=== PATIENT | male | born 1970 | race Caucasian/White ===

== ENCOUNTER 2019-02-27 21:56 | Inpatient (IN) | payer SELFPAY ==
[~2019-02-27] VITALS: Ht 165.1 cm; Wt 83.5 kg
[2019-02-27] MEDS ORDERED: ASPIRIN 81MG TABLET PO ONE (23:00)
[2019-02-27] MEDS ORDERED: NITROGLYCERIN OINT 1GM/INCH UDPKT TD ONE (23:00)
[2019-02-27 23:19] LABS: BASOPHILS % 0.8 % (0.0-2.0); EOSINOPHILS % 5.2 % (0.0-5.0); HEMATOCRIT. 48.3 % (42.0-52.0); HEMOGLOBIN. 16.4 g/dL (14.0-18.0); MEAN CORPUSCULAR HEMOGLOBIN 30.4 pg (28.0-32.0); MEAN CORPUSCULAR VOLUME 89.7 fL (80.0-94.0); MEAN PLATELET VOLUME 7.9 fl (7.4-10.4); MONOCYTES % 8.7 % (2.0-8.0); NEUTROPHILS % 69.3 % (40.0-76.0); PLATELET 234 x1000/uL (130-400); RED BLOOD CELL COUNT 5.39 mill/uL (4.7-6.1); RED CELL DISTRIBUTION WIDTH 14.1 % (11.6-14.6)
[2019-02-27 23:24] LABS: CHLORIDE 108 mEq/L (98-107)
[2019-02-28] MEDS ORDERED: ONDANSETRON HCL 4MG/2ML INJ IV ONE
[2019-02-28] MEDS ORDERED: MORPHINE SULFATE 4 MG/ML CPJ (NOT FOR IM USE) IV ONE
[2019-02-28 05:21] VITALS: BP 150/100
[2019-02-28] MEDS: MORPHINE SULFATE 2 MG/ML CPJ (NOT FOR IM USE) IV PRN ×3 (06:34→20:55)
[2019-02-28 08:00] VITALS: BP 133/88
[2019-02-28] MEDS ORDERED: INFLUENZA VIRUS VACCINE(AFLURIA) 0.5ML SYR IM ONE (08:00)
[2019-02-28] MEDS: ENOXAPARIN 40MG/0.4ML SYR SUBCUT SCH (08:23)
[2019-02-28] MEDS: ASPIRIN 325MG EC TABLET PO SCH (08:23)
[2019-02-28] MEDS: NITROGLYCERIN OINT 1GM/INCH UDPKT TD SCH ×3 (08:24→21:01)
[2019-02-28] MEDS ORDERED: METOPROLOL TARTRATE 50MG TABLET PO SCH (09:00)
[2019-02-28 12:00] VITALS: BP 132/82
[2019-02-28 16:00] VITALS: BP 108/73
[2019-02-28] MEDS ORDERED: LIP40 MT (16:28)
[2019-02-28] MEDS ORDERED: LOSA50TA41 MT (16:28)
[2019-02-28] MEDS ORDERED: CARV12.545 MT (16:28)
[2019-02-28] MEDS ORDERED: ASPI-1158 MT (16:28)
[2019-02-28 20:00] VITALS: BP 122/79
[2019-02-28] MEDS: CARVEDILOL 6.25 MG TABLET PO SCH (20:55)
[2019-02-28] MEDS ORDERED: ATORVASTATIN CALCIUM 40MG TABLET PO SCH (21:00)
[2019-03-01] VITALS: BP 103/66
[2019-03-01 04:00] VITALS: BP 125/85
[2019-03-01] MEDS: MORPHINE SULFATE 2 MG/ML CPJ (NOT FOR IM USE) IV PRN (04:16)
[2019-03-01] MEDS: NITROGLYCERIN OINT 1GM/INCH UDPKT TD SCH (05:22)
[2019-03-01 06:55] LABS: BASOPHILS % 0.7 % (0.0-2.0); EOSINOPHILS % 7.2 % (0.0-5.0); HEMATOCRIT. 49.4 % (42.0-52.0); HEMOGLOBIN. 16.6 g/dL (14.0-18.0); LYMPHOCYTES % 18.2 % (20.0-50.0); MEAN CORPUSCULAR HEMOGLOBIN 30.7 pg (28.0-32.0); MEAN CORPUSCULAR VOLUME 91.3 fL (80.0-94.0); MEAN PLATELET VOLUME 8.6 fl (7.4-10.4); MONOCYTES % 7.2 % (2.0-8.0); NEUTROPHILS % 66.7 % (40.0-76.0); PLATELET 250 x1000/uL (130-400); RED BLOOD CELL COUNT 5.42 mill/uL (4.7-6.1); RED CELL DISTRIBUTION WIDTH 13.8 % (11.6-14.6)
[2019-03-01 07:23] LABS: CHLORIDE 104 mEq/L (98-107)
[2019-03-01 08:00] VITALS: BP 115/73
[2019-03-01] MEDS: ASPIRIN 325MG EC TABLET PO SCH (08:16)
[2019-03-01] MEDS: ENOXAPARIN 40MG/0.4ML SYR SUBCUT SCH (08:17)
[2019-03-01] MEDS: CARVEDILOL 6.25 MG TABLET PO SCH (08:17)
[2019-03-01 08:53] VITALS: BP 115/73
[2019-03-01] MEDS ORDERED: CARVEDILOL 3.125 MG TABLET PO SCH (09:00)
[2019-03-01] MEDS ORDERED: LOSARTAN POTASSIUM 50 MG TABLET PO SCH (09:00)
[2019-03-01] MEDS ORDERED: FUROSEMIDE 40MG TABLET PO SCH (09:00)
== END 2019-03-01 09:25 | disposition home or self-care (01) | DRG 48 ==
LOC: ER 21:56 → EDBEDREQ 02-28 03:31 → EDBEDREQDT 02-28 03:31 → EDBEDREQTM 02-28 03:31 → ENRESERV 02-28 03:41 → 6WST 02-28 04:58
PROVIDERS: ADMIT Internal Medicine; ATTEND Internal Medicine
DX: G90.8 Other disorders of autonomic nervous system (principal); E87.8 Other disorders of electrolyte and fluid balance, not elsewhere classified; I11.0 Hypertensive heart disease with heart failure; I50.22 Chronic systolic (congestive) heart failure; I25.10 Atherosclerotic heart disease of native coronary artery without angina pectoris; R07.9 Chest pain, unspecified; E78.5 Hyperlipidemia, unspecified; I25.5 Ischemic cardiomyopathy; Z87.891 Personal history of nicotine dependence; I25.2 Old myocardial infarction; Z95.5 Presence of coronary angioplasty implant and graft; Z90.49 Acquired absence of other specified parts of digestive tract
CPT/HCPCS: 36415; 71045; 80048; 80061; 83880; 84443; 84484; 90686; 93005; 93306; 96374; 96375; 99285; J1650; J2270; J2405

== ENCOUNTER 2019-05-03 12:31 | Emergency (ER) | payer SELFPAY ==
[~2019-05-03] VITALS: Ht 175.3 cm; Wt 86.0 kg
[~2019-05-03 12:31] MED LIST: ASPI-1158 MT; CARV12.545 MT; LIP40 MT; LOSA50TA41 MT
[2019-05-03 12:58] VITALS: BP 159/101
[2019-05-03] MEDS ORDERED: NITROGLYCERIN 0.4MG TABLET SL SL PRN (14:45)
[2019-05-03] MEDS ORDERED: ASPIRIN 81MG TABLET PO ONE (14:45)
[2019-05-03 14:56] LABS: BASOPHILS % 0.9 % (0.0-2.0); EOSINOPHILS % 5.1 % (0.0-5.0); HEMOGLOBIN. 17.9 g/dL (14.0-18.0); LYMPHOCYTES % 24.6 % (20.0-50.0); MEAN CORPUSCULAR HEMOGLOBIN 30.4 pg (28.0-32.0); MEAN CORPUSCULAR VOLUME 89.9 fL (80.0-94.0); MEAN PLATELET VOLUME 8.1 fl (7.4-10.4); NEUTROPHILS % 59.4 % (40.0-76.0); PLATELET 269 x1000/uL (130-400); RED CELL DISTRIBUTION WIDTH 14.2 % (11.6-14.6)
[2019-05-03 15:02] LABS: CHLORIDE 105 mEq/L (98-107)
[2019-05-03 15:04] LABS: ETHANOL BLOOD < 10 mg/dL
== END 2019-05-03 15:14 | disposition left against medical advice (07) ==
LOC: ER 12:37 → CANBEDREQ 15:45
DX: R07.89 Other chest pain (principal); I11.9 Hypertensive heart disease without heart failure; I25.2 Old myocardial infarction; E78.00 Pure hypercholesterolemia, unspecified; Z90.49 Acquired absence of other specified parts of digestive tract; Z98.61 Coronary angioplasty status; Z79.82 Long term (current) use of aspirin
CPT/HCPCS: 36415; 80053; 80320; 83880; 84484; 85025; 93005; 99284; G0480

== ENCOUNTER 2020-03-15 01:37 | Emergency (ER) | payer MEDICAID ==
[~2020-03-15] VITALS: Ht 165.1 cm; Wt 80.0 kg
[2020-03-15 01:41] VITALS: BP 179/121
== END 2020-03-15 02:30 | disposition left against medical advice (07) ==
LOC: ER 01:37
DX: Z53.21 Procedure and treatment not carried out due to patient leaving prior to being seen by health care provider (principal); R07.9 Chest pain, unspecified
CPT/HCPCS: 93005

== ENCOUNTER 2021-03-21 00:07 | Inpatient (IN) | payer MEDICAID ==
[~2021-03-21] VITALS: Ht 165.1 cm; Wt 96.2 kg
[~2021-03-21 00:07] MED LIST changes: -ASPI-1158 MT; +ASPI-1406 MT
[2021-03-21] MEDS ORDERED: MORPHINE SULFATE 4 MG/ML CPJ (NOT FOR IM USE) IV STA (01:09)
[2021-03-21] MEDS ORDERED: ONDANSETRON HCL 4MG/2ML INJ IV STA (01:09)
[2021-03-21] MEDS ORDERED: ASPIRIN 81MG TABLET PO ONE (01:15)
[2021-03-21] MEDS: NITROGLYCERIN 0.4MG TABLET SL SL PRN ×2 (01:41→02:33)
[2021-03-21 01:42] LABS: BASOPHILS % 0.8 % (0.0-2.0); EOSINOPHILS % 4.3 % (0.0-5.0); HEMOGLOBIN. 16.5 g/dL (14.0-18.0); LYMPHOCYTES % 20.1 % (20.0-50.0); MEAN CORPUSCULAR HEMOGLOBIN 28.8 pg (28.0-32.0); MEAN CORPUSCULAR VOLUME 87.3 fL (80.0-94.0); MEAN PLATELET VOLUME 8.6 fl (7.4-10.4); MONOCYTES % 8.9 % (2.0-8.0); NEUTROPHILS % 65.9 % (40.0-76.0); PLATELET 234 x1000/uL (130-400); RED BLOOD CELL COUNT 5.72 mill/uL (4.7-6.1); RED CELL DISTRIBUTION WIDTH 14.5 % (11.6-14.6)
[2021-03-21 01:47] LABS: CHLORIDE 106 mEq/L (98-107)
[2021-03-21 01:51] LABS: ETHANOL BLOOD < 10 mg/dL
[2021-03-21 02:27] LABS: PARTIAL THROMBOPLASTIN TIME 27.9 sec (23.4-31.0); PROTHROMBIN TIME 10.6 sec (9.6-11.0)
[2021-03-21] MEDS ORDERED: ENOXAPARIN 100MG/ML SYR SUBCUT SCH (02:45)
[2021-03-21] MEDS ORDERED: MORPHINE SULFATE 4 MG/ML CPJ (NOT FOR IM USE) IV PRN (03:00)
[2021-03-21] MEDS ORDERED: CLONIDINE 0.1MG TABLET PO PRN (03:00)
[2021-03-21] MEDS ORDERED: HYDRALAZINE 20MG/ML VIAL IV PRN (03:00)
[2021-03-21] MEDS ORDERED: GUAIFENESIN 200MG/10ML SUGAR FREE UDC PO PRN (03:00)
[2021-03-21] MEDS ORDERED: MAGNESIUM HYDROXIDE 400MG/5ML 30ML UDC PO PRN (03:00)
[2021-03-21] MEDS ORDERED: MAGNESIUM/ALUMINUM HYDROXIDE/SIMETHICONE 30ML UDC PO PRN (03:00)
[2021-03-21] MEDS ORDERED: DIPHENHYDRAMINE 50MG/ML VIAL IV PRN (03:00)
[2021-03-21] MEDS ORDERED: ZOLPIDEM TARTRATE 5MG TABLET PO PRN (03:00)
[2021-03-21] MEDS ORDERED: ONDANSETRON HCL 4MG/2ML INJ IV PRN (03:00)
[2021-03-21] MEDS ORDERED: ACETAMINOPHEN 325MG TABLET PO PRN ×2 (03:00)
[2021-03-21] MEDS: ENOXAPARIN 100MG/ML SYR SUBCUT SCH ×2 (03:43→15:36)
[2021-03-21] MEDS: SODIUM CHLORIDE 0.9% INJ 3ML FLUSH IVF SCH ×3 (06:05→20:43)
[2021-03-21] MEDS: CARVEDILOL 12.5MG TABLET PO SCH ×2 (09:19→20:43)
[2021-03-21] MEDS: LOSARTAN POTASSIUM 50 MG TABLET PO SCH (09:19)
[2021-03-21] MEDS: OMEPRAZOLE 20MG CAPSULE EXTENDED RELEASE PO SCH ×2 (09:19→20:43)
[2021-03-21] MEDS: ASPIRIN 81MG EC TABLET PO SCH (09:20)
[2021-03-21 10:22] VITALS: BP 91/52
[2021-03-21 12:00] VITALS: BP 118/72
[2021-03-21] MEDS: MORPHINE SULFATE 2 MG/ML CPJ (NOT FOR IM USE) IV PRN ×2 (15:37→22:12)
[2021-03-21 16:00] VITALS: BP 138/92
[2021-03-21 20:00] VITALS: BP 121/80
[2021-03-21] MEDS ORDERED: ATORVASTATIN CALCIUM 40MG TABLET PO SCH (21:00)
[2021-03-21] MEDS ORDERED: NALOXONE HCL 0.4MG/ML VIAL IV PRN (22:45)
[2021-03-22] VITALS: BP 122/89
[2021-03-22 04:00] VITALS: BP 125/90
[2021-03-22] MEDS: MORPHINE SULFATE 2 MG/ML CPJ (NOT FOR IM USE) IV PRN (06:19)
[2021-03-22] MEDS: ENOXAPARIN 100MG/ML SYR SUBCUT SCH (06:19)
[2021-03-22] MEDS: SODIUM CHLORIDE 0.9% INJ 3ML FLUSH IVF SCH (06:20)
[2021-03-22] MEDS: OMEPRAZOLE 20MG CAPSULE EXTENDED RELEASE PO SCH (06:28)
[2021-03-22 08:00] VITALS: BP 128/72
[2021-03-22] MEDS: ASPIRIN 81MG EC TABLET PO SCH (09:00)
[2021-03-22] MEDS: LOSARTAN POTASSIUM 50 MG TABLET PO SCH (10:30)
[2021-03-22] MEDS: CARVEDILOL 12.5MG TABLET PO SCH (10:30)
[2021-03-22] MEDS ORDERED: REGADENOSON 0.4 MG/5 ML IV SCH (11:30)
[2021-03-22 12:00] VITALS: BP 132/75
[2021-03-22 13:22] VITALS: BP 142/102
== END 2021-03-22 14:10 | disposition home or self-care (01) | DRG 198 ==
LOC: ER 00:07 → ENRESERV 09:17 → 8WST 11:06
PROVIDERS: ADMIT Internal Medicine; ATTEND Internal Medicine
DX: I24.9 Acute ischemic heart disease, unspecified (principal); E11.9 Type 2 diabetes mellitus without complications; E78.00 Pure hypercholesterolemia, unspecified; E78.5 Hyperlipidemia, unspecified; E66.9 Obesity, unspecified; I25.10 Atherosclerotic heart disease of native coronary artery without angina pectoris; I10 Essential (primary) hypertension; I25.2 Old myocardial infarction; Z87.891 Personal history of nicotine dependence; Z95.5 Presence of coronary angioplasty implant and graft; Z82.49 Family history of ischemic heart disease and other diseases of the circulatory system; Z79.82 Long term (current) use of aspirin; Z79.899 Other long term (current) drug therapy; Z90.49 Acquired absence of other specified parts of digestive tract; Z68.35 Body mass index [BMI] 35.0-35.9, adult
CPT/HCPCS: 36415; 71045; 80053; 80320; 83036; 83880; 84484; 85025; 93005; 93306; 93970; 99285; J1650; J2270; J2405; G0480

== ENCOUNTER 2021-03-26 23:28 | Emergency (ER) | payer MEDICAID ==
[~2021-03-26] VITALS: Ht 165.1 cm; Wt 85.0 kg
[2021-03-26 23:34] VITALS: BP 172/108
[2021-03-27 00:19] LABS: BASOPHILS % 0.6 % (0.0-2.0); EOSINOPHILS % 5.2 % (0.0-5.0); HEMATOCRIT. 49.5 % (42.0-52.0); HEMOGLOBIN. 16.5 g/dL (14.0-18.0); LYMPHOCYTES % 19.1 % (20.0-50.0); MEAN CORPUSCULAR HEMOGLOBIN 29.1 pg (28.0-32.0); MEAN CORPUSCULAR VOLUME 87.3 fL (80.0-94.0); MEAN PLATELET VOLUME 8.9 fl (7.4-10.4); MONOCYTES % 10.4 % (2.0-8.0); NEUTROPHILS % 64.7 % (40.0-76.0); PLATELET 269 x1000/uL (130-400); RED BLOOD CELL COUNT 5.67 mill/uL (4.7-6.1); RED CELL DISTRIBUTION WIDTH 14.5 % (11.6-14.6)
[2021-03-27 00:28] LABS: CHLORIDE 107 mEq/L (98-107)
[2021-03-27] MEDS ORDERED: ASPIRIN 325MG EC TABLET PO ONE (01:30)
[2021-04-07] MEDS ORDERED: ATOR80TA MT (13:01)
[2021-04-07] MEDS ORDERED: METF-416 MT (13:02)
[2021-04-07] MEDS ORDERED: LOSA50TA41 MT (13:03)
[2021-04-07] MEDS ORDERED: AMLO10TA80 MT (13:03)
[2021-04-07] MEDS ORDERED: FAMO20TA8 MT (13:04)
[2021-04-07] MEDS ORDERED: CLOP-31 MT (13:04)
[2021-04-07] MEDS ORDERED: ISOS20TA57 PO (13:05)
== END 2021-03-27 02:15 | disposition left against medical advice (07) ==
LOC: ER 23:28
DX: R07.89 Other chest pain (principal); I24.9 Acute ischemic heart disease, unspecified; E78.00 Pure hypercholesterolemia, unspecified; I10 Essential (primary) hypertension; Z90.49 Acquired absence of other specified parts of digestive tract; Z79.899 Other long term (current) drug therapy
CPT/HCPCS: 36415; 80053; 83880; 84484; 85025; 93005; 99284

== ENCOUNTER 2021-09-20 23:27 | Inpatient (IN) | payer MEDICAID ==
[~2021-09-20] VITALS: Ht 165.1 cm; Wt 88.5 kg
[~2021-09-20 23:27] MED LIST changes: +AMLO10TA80 MT; +ATOR80TA MT; -CARV12.545 MT; +CLOP-31 MT; +FAMO20TA8 MT; +ISOS20TA57 PO; -LIP40 MT; +METF-416 MT
[2021-09-20 23:53] LABS: BASOPHILS % 0.5 % (0.0-2.0); EOSINOPHILS % 5.3 % (0.0-5.0); HEMOGLOBIN. 13.4 g/dL (14.0-18.0); LYMPHOCYTES % 24.4 % (20.0-50.0); MEAN CORPUSCULAR HEMOGLOBIN 28.6 pg (28.0-32.0); MEAN CORPUSCULAR VOLUME 85.6 fL (80.0-94.0); NEUTROPHILS % 60.8 % (40.0-76.0); PLATELET 321 x1000/uL (130-400); RED BLOOD CELL COUNT 4.68 mill/uL (4.7-6.1); RED CELL DISTRIBUTION WIDTH 14.4 % (11.6-14.6)
[2021-09-20 23:59] LABS: CLARITY URINE CLEAR (CLEAR); COLOR URINE YELLOW (YELLOW); KETONES URINE NEGATIVE (NEGATIVE); LEUKOCYTE ESTERASE URINE NEGATIVE (NEGATIVE); NITRITE URINE NEGATIVE (NEGATIVE); OCCULT BLOOD URINE TRACE (NEGATIVE); PH URINE 5.5 (4.5-8.0); PROTEIN URINE 1+ (NEGATIVE); SPECIFIC GRAVITY URINE 1.021 (1.005-1.030); UROBILINOGEN URINE 0.2 E.U./dL (0.2-1.0)
[2021-09-21 00:26] LABS: CHLORIDE 106 mEq/L (98-107)
[2021-09-21] MEDS: MORPHINE SULFATE 4 MG/ML CPJ (NOT FOR IM USE) IV PRN ×2 (06:18→16:31)
[2021-09-21] MEDS ORDERED: DEXTROSE 50% WATER 50ML SYRINGE IV PRN (10:00)
[2021-09-21] MEDS ORDERED: DIPHENHYDRAMINE 50MG/ML VIAL IV PRN (10:00)
[2021-09-21] MEDS ORDERED: MAGNESIUM/ALUMINUM HYDROXIDE/SIMETHICONE 30ML UDC PO PRN (10:00)
[2021-09-21] MEDS ORDERED: CLONIDINE 0.1MG TABLET PO PRN (10:00)
[2021-09-21] MEDS ORDERED: ACETAMINOPHEN 325MG TABLET PO PRN (10:00)
[2021-09-21] MEDS ORDERED: ONDANSETRON HCL 4MG/2ML INJ IV PRN (10:00)
[2021-09-21] MEDS ORDERED: NALOXONE HCL 0.4MG/ML VIAL IV PRN (10:30)
[2021-09-21 12:00] VITALS: BP 145/96
[2021-09-21] MEDS: CLOPIDOGREL 75MG TABLET PO SCH (12:24)
[2021-09-21] MEDS: METOPROLOL TARTRATE 25MG TABLET PO SCH ×2 (12:27→21:02)
[2021-09-21] MEDS: PANTOPRAZOLE 40MG DR TABLET PO SCH (12:27)
[2021-09-21] MEDS: ASPIRIN 81MG EC TABLET PO SCH (12:27)
[2021-09-21] MEDS ORDERED: MORPHINE SULFATE 2 MG/ML CPJ (NOT FOR IM USE) IV NR (12:30)
[2021-09-21] MEDS ORDERED: REGADENOSON 0.4 MG/5 ML IV NR (12:30)
[2021-09-21] MEDS: BLOOD SUGAR DIAGNOSTIC STRIP TEST SCH ×3 (12:35→21:00)
[2021-09-21] MEDS: INSULIN LISPRO 100 UNITS/ML SUBCUT SCH ×3 (12:35→21:06)
[2021-09-21 13:04] VITALS: BP 145/96
[2021-09-21] MEDS ORDERED: CARV3.1242 MT (13:21)
[2021-09-21] MEDS: NITROGLYCERIN OINT 1GM/INCH UDPKT TD SCH ×2 (13:39→17:11)
[2021-09-21] MEDS: SODIUM CHLORIDE 0.9% INJ 3ML FLUSH IVF SCH ×2 (13:39→21:03)
[2021-09-21] MEDS ORDERED: NITROGLYCERIN OINT 1GM/INCH UDPKT TD SCH (14:00)
[2021-09-21] MEDS ORDERED: PNEUMOCOCCAL 23-VAL P-SAC VAC 0.5 ML IM ONE (14:30)
[2021-09-21 16:12] VITALS: BP 132/81
[2021-09-21 16:33] LABS: *AMPHETAMINES SCREEN URINE NEGATIVE (NEGATIVE); *BARBITURATES SCREEN URINE NEGATIVE (NEGATIVE); *BENZODIAZEPINES SCREEN URINE NEGATIVE (NEGATIVE); *COCAINE SCREEN URINE NEGATIVE (NEGATIVE); CANNABINOID URINE SCREEN PRESUMTIVE POSITIVE (NEGATIVE); METHADONE URINE SCREEN NEGATIVE (NEGATIVE); OPIATES URINE SCREEN PRESUMTIVE POSITIVE (NEGATIVE); PHENCYCLIDINE URINE SCREEN NEGATIVE (NEGATIVE)
[2021-09-21] MEDS: MORPHINE SULFATE 2 MG/ML CPJ (NOT FOR IM USE) IV PRN ×2 (16:41→21:04)
[2021-09-21 17:29] LABS: CHLORIDE 104 mEq/L (98-107)
[2021-09-21 18:42] LABS: BASOPHILS % 0.5 % (0.0-2.0); EOSINOPHILS % 6.7 % (0.0-5.0); HEMATOCRIT. 42.9 % (42.0-52.0); LYMPHOCYTES % 21.1 % (20.0-50.0); MEAN CORPUSCULAR HEMOGLOBIN 28.3 pg (28.0-32.0); MEAN PLATELET VOLUME 8.6 fl (7.4-10.4); MONOCYTES % 10.5 % (2.0-8.0); NEUTROPHILS % 61.2 % (40.0-76.0); PLATELET 272 x1000/uL (130-400); RED BLOOD CELL COUNT 4.93 mill/uL (4.7-6.1); RED CELL DISTRIBUTION WIDTH 14.7 % (11.6-14.6)
[2021-09-21 20:00] VITALS: BP 141/83
[2021-09-21] MEDS ORDERED: ZOLPIDEM TARTRATE 5MG TABLET PO PRN (21:00)
[2021-09-21] MEDS: ATORVASTATIN CALCIUM 40MG TABLET PO SCH (21:02)
[2021-09-22] VITALS: BP 119/71
[2021-09-22] MEDS: MORPHINE SULFATE 2 MG/ML CPJ (NOT FOR IM USE) IV PRN ×6 (01:49→22:43)
[2021-09-22] MEDS: NITROGLYCERIN OINT 1GM/INCH UDPKT TD SCH ×5 (01:49→23:24)
[2021-09-22 04:00] VITALS: BP 108/76
[2021-09-22] MEDS: SODIUM CHLORIDE 0.9% INJ 3ML FLUSH IVF SCH ×3 (05:46→20:08)
[2021-09-22] MEDS: PANTOPRAZOLE 40MG DR TABLET PO SCH (05:46)
[2021-09-22] MEDS: BLOOD SUGAR DIAGNOSTIC STRIP TEST SCH ×4 (05:46→20:08)
[2021-09-22] MEDS: INSULIN LISPRO 100 UNITS/ML SUBCUT SCH ×4 (05:48→20:08)
[2021-09-22 06:04] LABS: BASOPHILS % 0.3 % (0.0-2.0); EOSINOPHILS % 7.3 % (0.0-5.0); HEMATOCRIT. 39.1 % (42.0-52.0); HEMOGLOBIN. 13.1 g/dL (14.0-18.0); MEAN CORPUSCULAR HEMOGLOBIN 28.6 pg (28.0-32.0); MEAN CORPUSCULAR VOLUME 85.1 fL (80.0-94.0); MEAN PLATELET VOLUME 8.3 fl (7.4-10.4); MONOCYTES % 7.1 % (2.0-8.0); NEUTROPHILS % 66.3 % (40.0-76.0); PLATELET 306 x1000/uL (130-400); RED CELL DISTRIBUTION WIDTH 14.4 % (11.6-14.6)
[2021-09-22 06:24] LABS: CHLORIDE 102 mEq/L (98-107)
[2021-09-22 08:00] VITALS: BP 121/90
[2021-09-22] MEDS: CLOPIDOGREL 75MG TABLET PO SCH (08:36)
[2021-09-22] MEDS: METOPROLOL TARTRATE 25MG TABLET PO SCH ×2 (08:36→20:08)
[2021-09-22] MEDS: METFORMIN HCL 500MG TABLET PO SCH ×2 (08:36→17:31)
[2021-09-22] MEDS: ASPIRIN 81MG EC TABLET PO SCH (08:36)
[2021-09-22] MEDS: REGADENOSON 0.4 MG/5 ML IV NR (08:45)
[2021-09-22 12:00] VITALS: BP 126/83
[2021-09-22 16:00] VITALS: BP 126/81
[2021-09-22 20:00] VITALS: BP 139/88
[2021-09-22] MEDS: ATORVASTATIN CALCIUM 40MG TABLET PO SCH (20:07)
[2021-09-23] VITALS: BP 135/87
[2021-09-23] MEDS: ACETAMINOPHEN 325MG TABLET PO PRN ×2 (01:40→06:06)
[2021-09-23] MEDS: MORPHINE SULFATE 2 MG/ML CPJ (NOT FOR IM USE) IV PRN ×3 (03:12→13:52)
[2021-09-23 04:00] VITALS: BP 129/84
[2021-09-23] MEDS: BLOOD SUGAR DIAGNOSTIC STRIP TEST SCH ×2 (05:22→11:14)
[2021-09-23] MEDS: INSULIN LISPRO 100 UNITS/ML SUBCUT SCH ×2 (05:22→12:40)
[2021-09-23] MEDS: NITROGLYCERIN OINT 1GM/INCH UDPKT TD SCH ×2 (06:00→06:01)
[2021-09-23] MEDS: PANTOPRAZOLE 40MG DR TABLET PO SCH ×2 (06:02→06:06)
[2021-09-23] MEDS: SODIUM CHLORIDE 0.9% INJ 3ML FLUSH IVF SCH ×2 (06:02→13:22)
[2021-09-23 07:14] LABS: BASOPHILS % 0.5 % (0.0-2.0); EOSINOPHILS % 9.4 % (0.0-5.0); HEMATOCRIT. 39.4 % (42.0-52.0); HEMOGLOBIN. 13.2 g/dL (14.0-18.0); LYMPHOCYTES % 21.3 % (20.0-50.0); MEAN CORPUSCULAR HEMOGLOBIN 28.6 pg (28.0-32.0); MEAN CORPUSCULAR VOLUME 85.4 fL (80.0-94.0); MEAN PLATELET VOLUME 8.4 fl (7.4-10.4); MONOCYTES % 7.1 % (2.0-8.0); NEUTROPHILS % 61.7 % (40.0-76.0); PLATELET 300 x1000/uL (130-400); RED BLOOD CELL COUNT 4.62 mill/uL (4.7-6.1); RED CELL DISTRIBUTION WIDTH 14.7 % (11.6-14.6)
[2021-09-23 07:15] LABS: CHLORIDE 103 mEq/L (98-107)
[2021-09-23] MEDS: METFORMIN HCL 500MG TABLET PO SCH ×2 (07:40→08:20)
[2021-09-23 08:00] VITALS: BP 124/90
[2021-09-23] MEDS: METOPROLOL TARTRATE 25MG TABLET PO SCH ×2 (08:20→08:27)
[2021-09-23] MEDS: CLOPIDOGREL 75MG TABLET PO SCH ×2 (08:20→08:27)
[2021-09-23] MEDS: ASPIRIN 81MG EC TABLET PO SCH ×2 (08:20→08:27)
[2021-09-23] MEDS: REGADENOSON 0.4 MG/5 ML IV NR (08:45)
[2021-09-23 12:00] VITALS: BP 131/69
[2021-09-23] MEDS ORDERED: POTASSIUM CHLORIDE 10MEQ TABLET SR PO SCH (12:00)
[2021-09-23] MEDS ORDERED: FUROSEMIDE 40MG TABLET PO SCH (12:00)
[2021-09-23] MEDS ORDERED: CARVEDILOL 6.25 MG TABLET PO SCH (13:00)
[2021-09-23 14:12] VITALS: BP 131/69
[2021-09-24] MEDS ORDERED: LISINOPRIL 2.5MG TABLET PO SCH (09:00)
[2021-09-24] MEDS ORDERED: ISOSORBIDE MONONITRATE 30MG TABLET SR 24HR PO SCH (09:00)
== END 2021-09-23 14:51 | disposition home or self-care (01) | DRG 198 ==
LOC: ER 23:27 → 8WST 09-21 03:08 → ENRESERV 09-21 07:18 → 8WST 09-21 11:08
PROVIDERS: ADMIT Internal Medicine; ATTEND Internal Medicine
DX: I25.10 Atherosclerotic heart disease of native coronary artery without angina pectoris (principal); I11.0 Hypertensive heart disease with heart failure; I50.22 Chronic systolic (congestive) heart failure; E11.9 Type 2 diabetes mellitus without complications; E78.00 Pure hypercholesterolemia, unspecified; E78.5 Hyperlipidemia, unspecified; F15.10 Other stimulant abuse, uncomplicated; F17.210 Nicotine dependence, cigarettes, uncomplicated; Z20.822 Contact with and (suspected) exposure to COVID-19; I25.5 Ischemic cardiomyopathy; I25.2 Old myocardial infarction; Z79.82 Long term (current) use of aspirin; Z79.899 Other long term (current) drug therapy; Z79.84 Long term (current) use of oral hypoglycemic drugs; Z82.49 Family history of ischemic heart disease and other diseases of the circulatory system; Z90.49 Acquired absence of other specified parts of digestive tract; Z95.5 Presence of coronary angioplasty implant and graft; Z79.02 Long term (current) use of antithrombotics/antiplatelets; Z82.3 Family history of stroke; Z95.810 Presence of automatic (implantable) cardiac defibrillator
CPT/HCPCS: 36415; 71045; 78452; 80048; 80053; 80305; 81003; 82962; 83036; 83880; 84484; 85025; 87426; 90732; 93005; 93017; 93308; 99285; A9500; J1815; J2270; J2785

== ENCOUNTER 2021-10-04 21:38 | Emergency (ER) | payer MEDICAID ==
[~2021-10-04] VITALS: Ht 165.1 cm; Wt 84.0 kg
[~2021-10-04 21:38] MED LIST changes: +CARV3.1242 MT
[2021-10-04] MEDS ORDERED: ASPIRIN 81MG TABLET PO ONE (22:00)
[2021-10-04 22:10] LABS: BASOPHILS % 0.8 % (0.0-2.0); EOSINOPHILS % 7.9 % (0.0-5.0); HEMATOCRIT. 41.1 % (42.0-52.0); HEMOGLOBIN. 13.6 g/dL (14.0-18.0); LYMPHOCYTES % 24.4 % (20.0-50.0); MEAN CORPUSCULAR HEMOGLOBIN 28.3 pg (28.0-32.0); MONOCYTES % 10.1 % (2.0-8.0); NEUTROPHILS % 56.8 % (40.0-76.0); PLATELET 285 x1000/uL (130-400); RED BLOOD CELL COUNT 4.78 mill/uL (4.7-6.1); RED CELL DISTRIBUTION WIDTH 15.8 % (11.6-14.6)
[2021-10-04 22:21] LABS: CHLORIDE 104 mEq/L (98-107)
[2021-10-04 22:56] LABS: *AMPHETAMINES SCREEN URINE NEGATIVE (NEGATIVE); *BARBITURATES SCREEN URINE NEGATIVE (NEGATIVE); *BENZODIAZEPINES SCREEN URINE NEGATIVE (NEGATIVE); *COCAINE SCREEN URINE NEGATIVE (NEGATIVE); CANNABINOID URINE SCREEN PRESUMTIVE POSITIVE (NEGATIVE); METHADONE URINE SCREEN NEGATIVE (NEGATIVE); OPIATES URINE SCREEN NEGATIVE (NEGATIVE); PHENCYCLIDINE URINE SCREEN NEGATIVE (NEGATIVE)
[2021-10-04] MEDS ORDERED: NITROGLYCERIN OINT 1GM/INCH UDPKT TD ONE (23:15)
[2021-10-05] MEDS ORDERED: ACETAMINOPHEN 325MG TABLET PO ONE (00:30)
[2021-10-05 02:10] VITALS: BP 132/82
== END 2021-10-05 02:14 | disposition home or self-care (01) ==
LOC: ER 21:38
DX: R07.89 Other chest pain (principal); R73.9 Hyperglycemia, unspecified; I25.2 Old myocardial infarction; Z95.0 Presence of cardiac pacemaker; I10 Essential (primary) hypertension
CPT/HCPCS: 36415; 71045; 80053; 80305; 83880; 84484; 85025; 99284; Z7610

== ENCOUNTER 2022-02-16 14:52 | Emergency (ER) | payer MEDICAID, OTHER ==
[~2022-02-16] VITALS: Ht 167.6 cm; Wt 109.0 kg
[2022-02-16 14:58] VITALS: BP 166/102
== END 2022-02-17 00:41 | disposition left against medical advice (07) ==
LOC: ER 14:52
DX: Z53.21 Procedure and treatment not carried out due to patient leaving prior to being seen by health care provider (principal)

== ENCOUNTER 2022-02-18 22:49 | Emergency (ER) | payer OTHER ==
[~2022-02-18] VITALS: Ht 165.1 cm; Wt 84.0 kg
[2022-02-19] MEDS ORDERED: ASPIRIN 81MG TABLET PO ONE (04:30)
[2022-02-19] MEDS: NITROGLYCERIN 0.4MG TABLET SL SL PRN ×3 (04:36→04:50)
[2022-02-19 04:58] LABS: CHLORIDE 104 mEq/L (98-107)
[2022-02-19 05:04] LABS: BASOPHILS % 0.7 % (0.0-2.0); EOSINOPHILS % 6.3 % (0.0-5.0); HEMATOCRIT. 50.6 % (42.0-52.0); HEMOGLOBIN. 17.2 g/dL (14.0-18.0); LYMPHOCYTES % 24.6 % (20.0-50.0); MEAN CORPUSCULAR HEMOGLOBIN 29.4 pg (28.0-32.0); MEAN CORPUSCULAR VOLUME 86.4 fL (80.0-94.0); MEAN PLATELET VOLUME 8.7 fl (7.4-10.4); MONOCYTES % 11.2 % (2.0-8.0); NEUTROPHILS % 57.2 % (40.0-76.0); PLATELET 250 x1000/uL (130-400); RED BLOOD CELL COUNT 5.86 mill/uL (4.7-6.1); RED CELL DISTRIBUTION WIDTH 15.4 % (11.6-14.6)
[2022-02-19 07:50] VITALS: BP 157/96
== END 2022-02-19 07:52 | disposition left against medical advice (07) ==
LOC: ER 22:49 → CANBEDREQ 02-19 23:43
DX: R07.89 Other chest pain (principal); I20.0 Unstable angina; E11.9 Type 2 diabetes mellitus without complications; E78.00 Pure hypercholesterolemia, unspecified; I10 Essential (primary) hypertension; I25.2 Old myocardial infarction; Z90.49 Acquired absence of other specified parts of digestive tract; Z79.899 Other long term (current) drug therapy
CPT/HCPCS: 36415; 71045; 80053; 83880; 84484; 85025; 93005; 99285; Z7610

== ENCOUNTER 2022-02-23 10:43 | Emergency (ER) | payer OTHER ==
[~2022-02-23] VITALS: Ht 165.1 cm; Wt 84.0 kg
[2022-02-23] MEDS ORDERED: MORPHINE SULFATE 4 MG/ML CPJ (NOT FOR IM USE) IV ONE (11:30)
[2022-02-23] MEDS ORDERED: ASPIRIN 325MG EC TABLET PO ONE (11:30)
[2022-02-23] MEDS ORDERED: NITROGLYCERIN 0.4MG TABLET SL SL ONE (11:30)
[2022-02-23 11:44] LABS: BASOPHILS % 0.8 % (0.0-2.0); EOSINOPHILS % 6.2 % (0.0-5.0); HEMATOCRIT. 51.5 % (42.0-52.0); HEMOGLOBIN. 16.9 g/dL (14.0-18.0); LYMPHOCYTES % 24.5 % (20.0-50.0); MEAN CORPUSCULAR HEMOGLOBIN 28.7 pg (28.0-32.0); MEAN CORPUSCULAR VOLUME 87.4 fL (80.0-94.0); MEAN PLATELET VOLUME 8.5 fl (7.4-10.4); MONOCYTES % 8.1 % (2.0-8.0); NEUTROPHILS % 60.4 % (40.0-76.0); PLATELET 249 x1000/uL (130-400); RED BLOOD CELL COUNT 5.89 mill/uL (4.7-6.1); RED CELL DISTRIBUTION WIDTH 15.1 % (11.6-14.6)
[2022-02-23 12:13] LABS: CHLORIDE 107 mEq/L (98-107)
[2022-02-23 12:22] LABS: ETHANOL BLOOD < 10 mg/dL
[2022-02-23] MEDS ORDERED: IOHEXOL-350 100 ML BOTTLE ONE (14:16)
[2022-02-23] MEDS ORDERED: NITR0.4T SL (15:11)
[2022-02-23] MEDS ORDERED: ASPI-1497 MT (15:11)
[2022-02-23 15:36] VITALS: BP 176/101
== END 2022-02-23 15:52 | disposition home or self-care (01) ==
LOC: ER 10:43 → CANBEDREQ 22:01
DX: R07.89 Other chest pain (principal); E11.9 Type 2 diabetes mellitus without complications; E78.00 Pure hypercholesterolemia, unspecified; I10 Essential (primary) hypertension; I25.2 Old myocardial infarction; Z90.49 Acquired absence of other specified parts of digestive tract; Z79.899 Other long term (current) drug therapy
CPT/HCPCS: 36415; 71045; 71275; 80053; 80320; 83690; 83880; 84484; 85025; 93005; 96374; 99285; J2270; Q9967; G0480

== ENCOUNTER 2022-05-17 14:03 | Emergency (ER) | payer OTHER ==
[~2022-05-17] VITALS: Ht 165.1 cm; Wt 84.0 kg
[~2022-05-17 14:03] MED LIST changes: +ASPI-1497 MT; +NITR0.4T SL
[2022-05-17 14:05] VITALS: BP 180/113
== END 2022-05-17 21:06 | disposition left against medical advice (07) ==
LOC: ER 14:03
DX: Z53.21 Procedure and treatment not carried out due to patient leaving prior to being seen by health care provider (principal); R07.89 Other chest pain; R94.31 Abnormal electrocardiogram [ECG] [EKG]; E11.65 Type 2 diabetes mellitus with hyperglycemia; I10 Essential (primary) hypertension
CPT/HCPCS: 82962; 93005

== ENCOUNTER 2022-05-26 14:04 | Emergency (ER) | payer OTHER ==
[~2022-05-26] VITALS: Ht 165.1 cm; Wt 84.0 kg
[2022-05-26 14:12] VITALS: BP 187/115
== END 2022-05-26 18:59 | disposition left against medical advice (07) ==
LOC: ER 14:04
DX: Z53.21 Procedure and treatment not carried out due to patient leaving prior to being seen by health care provider (principal)

== ENCOUNTER 2022-05-27 10:58 | Inpatient (IN) | payer OTHER ==
[~2022-05-27] VITALS: Ht 165.1 cm; Wt 88.1 kg
[2022-05-27] MEDS ORDERED: MORPHINE SULFATE 4 MG/ML CPJ (NOT FOR IM USE) IV NR (12:00)
[2022-05-27] MEDS ORDERED: HEPARIN 25,000 UNITS PREMIX 250 ML IV ONE (12:00)
[2022-05-27] MEDS ORDERED: NITROGLYCERIN 0.4MG TABLET SL SL SCH (12:00)
[2022-05-27] MEDS ORDERED: CLOPIDOGREL 75MG TABLET PO NR (12:00)
[2022-05-27] MEDS ORDERED: ASPIRIN 325MG EC TABLET PO NR (12:00)
[2022-05-27] MEDS ORDERED: HEPARIN 5000 UNITS/ML VIAL IV ONE (12:00)
[2022-05-27 12:03] LABS: BASOPHILS % 0.8 % (0.0-2.0); EOSINOPHILS % 3.5 % (0.0-5.0); HEMATOCRIT. 54.8 % (42.0-52.0); HEMOGLOBIN. 18.5 g/dL (14.0-18.0); LYMPHOCYTES % 27.1 % (20.0-50.0); MEAN CORPUSCULAR HEMOGLOBIN 29.6 pg (28.0-32.0); MEAN CORPUSCULAR VOLUME 87.5 fL (80.0-94.0); MEAN PLATELET VOLUME 8.5 fl (7.4-10.4); MONOCYTES % 7.5 % (2.0-8.0); NEUTROPHILS % 61.1 % (40.0-76.0); PLATELET 253 x1000/uL (130-400); RED BLOOD CELL COUNT 6.26 mill/uL (4.7-6.1); RED CELL DISTRIBUTION WIDTH 14.9 % (11.6-14.6)
[2022-05-27 12:11] LABS: CHLORIDE 104 mEq/L (98-107)
[2022-05-27] MEDS ORDERED: CLONIDINE 0.2MG TABLET PO ONE (12:15)
[2022-05-27 12:24] LABS: D-DIMER 0.19 mg/L FEU (<0.50); PARTIAL THROMBOPLASTIN TIME 29.8 sec (23.4-31.0)
[2022-05-27] MEDS: AMLODIPINE 5MG TABLET PO SCH (12:30)
[2022-05-27] MEDS: CARVEDILOL 6.25 MG TABLET PO SCH ×2 (12:30→20:36)
[2022-05-27] MEDS ORDERED: MORPHINE SULFATE 4 MG/ML CPJ (NOT FOR IM USE) IV ONE (15:45)
[2022-05-27] MEDS ORDERED: ONDANSETRON HCL 4MG/2ML INJ IV PRN (19:45)
[2022-05-27] MEDS ORDERED: ACETAMINOPHEN 325MG TABLET PO PRN (19:45)
[2022-05-27] MEDS ORDERED: DIPHENHYDRAMINE 50MG/ML VIAL IV PRN (19:45)
[2022-05-27] MEDS ORDERED: IPRATROPIUM/ALBUTEROL 0.5-3(2.5)MG/3ML NEB HHN PRN (19:45)
[2022-05-27 20:00] VITALS: BP 169/100
[2022-05-27] MEDS ORDERED: IPRATROPIUM BROMIDE (0.02%) 0.5MG/2.5ML NEB HHN PRN (20:00)
[2022-05-27] MEDS ORDERED: ALBUTEROL (0.083%) 2.5MG/3ML NEB HHN PRN (20:00)
[2022-05-27] MEDS: CLONIDINE 0.1MG TABLET PO PRN (20:36)
[2022-05-27 22:00] VITALS: BP 122/87
[2022-05-27] MEDS: MORPHINE SULFATE 2 MG/ML CPJ (NOT FOR IM USE) IV PRN (22:16)
[2022-05-28] VITALS: BP 125/80
[2022-05-28 04:00] VITALS: BP 128/88
[2022-05-28 07:35] LABS: BASOPHILS % 0.7 % (0.0-2.0); HEMATOCRIT. 55.6 % (42.0-52.0); HEMOGLOBIN. 18.3 g/dL (14.0-18.0); LYMPHOCYTES % 22.8 % (20.0-50.0); MEAN CORPUSCULAR HEMOGLOBIN 28.9 pg (28.0-32.0); MEAN PLATELET VOLUME 8.6 fl (7.4-10.4); MONOCYTES % 8.9 % (2.0-8.0); NEUTROPHILS % 62.6 % (40.0-76.0); PLATELET 247 x1000/uL (130-400); RED BLOOD CELL COUNT 6.31 mill/uL (4.7-6.1); RED CELL DISTRIBUTION WIDTH 15.1 % (11.6-14.6)
[2022-05-28 08:00] VITALS: BP 155/110
[2022-05-28] MEDS: AMLODIPINE 5MG TABLET PO SCH (08:00)
[2022-05-28] MEDS: CLONIDINE 0.1MG TABLET PO PRN ×2 (08:01→14:17)
[2022-05-28] MEDS: CARVEDILOL 6.25 MG TABLET PO SCH (08:02)
[2022-05-28] MEDS: MORPHINE SULFATE 2 MG/ML CPJ (NOT FOR IM USE) IV PRN ×2 (08:02→16:53)
[2022-05-28 08:03] LABS: CHLORIDE 101 mEq/L (98-107)
[2022-05-28] MEDS ORDERED: PNEUMOCOCCAL 23-VAL P-SAC VAC 0.5 ML IM ONE (11:00)
[2022-05-28] MEDS ORDERED: INFLUENZA VACCINE 05/PF 0.5 ML SYRINGE IM ONE (11:00)
[2022-05-28 12:00] VITALS: BP 139/106
[2022-05-28 16:00] VITALS: BP 141/96
[2022-05-28 16:53] VITALS: BP 141/96
[2022-05-28] MEDS ORDERED: NALOXONE HCL 0.4MG/ML VIAL IV PRN (18:30)
== END 2022-05-28 18:50 | disposition left against medical advice (07) | DRG 199 ==
LOC: ER 11:40 → 7WST 16:36 → EDBEDREQTM 16:41 → EDBEDREQ 16:41 → ENRESERV 18:09
PROVIDERS: ADMIT Internal Medicine; ATTEND Internal Medicine
DX: I16.1 Hypertensive emergency (principal); I25.110 Atherosclerotic heart disease of native coronary artery with unstable angina pectoris; I50.9 Heart failure, unspecified; I11.0 Hypertensive heart disease with heart failure; E11.9 Type 2 diabetes mellitus without complications; Z20.822 Contact with and (suspected) exposure to COVID-19; Z53.29 Procedure and treatment not carried out because of patient's decision for other reasons; Z95.0 Presence of cardiac pacemaker; Z95.5 Presence of coronary angioplasty implant and graft; Z83.3 Family history of diabetes mellitus; Z88.8 Allergy status to other drugs, medicaments and biological substances
CPT/HCPCS: 36415; 71045; 80053; 83880; 84484; 85025; 85379; 87426; 90686; 90732; 93005; 93306; 93970; 99291; C9803; J2270

== ENCOUNTER 2023-07-23 02:41 | Emergency (ER) | payer OTHER ==
[~2023-07-23] VITALS: Ht 165.1 cm; Wt 86.0 kg
[~2023-07-23 02:41] MED LIST changes: +ISMO20 PO; -ISOS20TA57 PO
[2023-07-23 03:35] VITALS: BP 166/108; PULSE 90; RESP 16; TEMP 98.5; O2SAT 99
== END 2023-07-23 07:38 | disposition left against medical advice (07) ==
LOC: ER 02:41
DX: M25.561 Pain in right knee (principal); Z53.21 Procedure and treatment not carried out due to patient leaving prior to being seen by health care provider
CPT/HCPCS: 99281

== ENCOUNTER 2023-10-16 06:13 | Emergency (ER) | payer OTHER ==
[~2023-10-16] VITALS: Ht 165.1 cm; Wt 87.0 kg
[2023-10-16 06:16] VITALS: BP 145/87; PULSE 84; RESP 18; TEMP 98; O2SAT 96
[2023-10-16] MEDS ORDERED: ASPIRIN 325MG EC TABLET PO ONE (06:30)
== END 2023-10-16 07:10 | disposition left against medical advice (07) ==
LOC: ER 06:13
DX: R07.9 Chest pain, unspecified (principal); I25.2 Old myocardial infarction; Z88.6 Allergy status to analgesic agent
CPT/HCPCS: 93005; 99283

== ENCOUNTER 2023-12-16 12:44 | Emergency (ER) | payer OTHER ==
[~2023-12-16] VITALS: Ht 172.7 cm; Wt 95.0 kg
[2023-12-16 12:49] VITALS: O2SAT 98
[2023-12-16] MEDS: ASPIRIN 81MG TABLET PO ONE (13:00)
[2023-12-16] MEDS ORDERED: NITROGLYCERIN 0.4MG TABLET SL SL PRN (13:00)
[2023-12-16 13:08] LABS: BASOPHILS % 0.9 % (0.0-2.0); EOSINOPHILS % 5.4 % (0.0-5.0); HEMATOCRIT. 47.8 % (42.0-52.0); HEMOGLOBIN. 16.2 g/dL (14.0-18.0); LYMPHOCYTES % 22.2 % (20.0-50.0); MEAN CORPUSCULAR HEMOGLOBIN 28.5 pg (28.0-32.0); MEAN CORPUSCULAR HGB CONC 33.9 g/dL (31.0-37.0); MEAN CORPUSCULAR VOLUME 84.1 fL (80.0-94.0); MEAN PLATELET VOLUME 8.7 fl (7.4-10.4); MONOCYTES % 6.7 % (2.0-8.0); NEUTROPHILS % 64.8 % (40.0-76.0); PLATELET 244 x1000/uL (130-400); RED BLOOD CELL COUNT 5.68 mill/uL (4.7-6.1); RED CELL DISTRIBUTION WIDTH 16.3 % (11.6-14.6); WHITE BLOOD COUNT 10.5 x1000/uL (4.5-11.0)
[2023-12-16 13:17] LABS: CHLORIDE 104 mEq/L (98-107); SODIUM 137 mEq/L (136-145)
[2023-12-16 13:18] LABS: CARBON DIOXIDE 27 mEq/L (21-32)
[2023-12-16 13:19] LABS: CALCIUM 9.4 mg/dL (8.7-10.4)
[2023-12-16 13:23] LABS: CREATININE 1.1 mg/dL (0.6-1.3); GLUCOSE 185 mg/dL (70-105); UREA NITROGEN BLOOD 10 mg/dL (9-23)
[2023-12-16 13:24] LABS: TROPONIN I HIGH SENSITIVITY 46 ng/L (3.0-53)
[2023-12-16 13:29] LABS: ETHANOL BLOOD < 10 mg/dL (<10)
[2023-12-16] MEDS: MORPHINE SULFATE 4 MG/ML INJ (FOR IV/IM USE) IV STA (14:07)
[2023-12-16] MEDS: HYDRALAZINE 20MG/ML VIAL IV NR (14:47)
[2023-12-16 15:58] VITALS: BP 154/102; PULSE 85; RESP 16; TEMP 37.05852; O2SAT 98
[2023-12-16 16:27] LABS: TROPONIN I HIGH SENSITIVITY 52 ng/L (3.0-53)
== END 2023-12-16 16:19 | disposition admitted as inpatient to this hospital (09) ==
LOC: ER 12:44 → CANBEDREQ 14:28 → ER 16:19
DX: R07.89 Other chest pain (principal); I25.2 Old myocardial infarction; I10 Essential (primary) hypertension; E78.00 Pure hypercholesterolemia, unspecified; Z79.899 Other long term (current) drug therapy; Z88.6 Allergy status to analgesic agent; Z98.890 Other specified postprocedural states
CPT/HCPCS: 80048; 80320; 85025; 84484; 36415; 71045; 93005; 96374; 96375; 99285; Z7610 ×2; J0360; J2270; G0480

== ENCOUNTER 2024-03-20 15:10 | Emergency (ER) | payer OTHER ==
[~2024-03-20] VITALS: Ht 165.1 cm; Wt 86.2 kg
[~2024-03-20 15:10] MED LIST changes: +ATOR-388 MT; -ATOR80TA MT
[2024-03-20 15:12] VITALS: PULSE 97; O2SAT 98
[2024-03-20 15:37] VITALS: BP 180/114; RESP 16; TEMP 98.3; O2SAT 98
== END 2024-03-20 16:20 | disposition left against medical advice (07) ==
LOC: ER 15:10
DX: M79.89 Other specified soft tissue disorders (principal); X58.XXXA Exposure to other specified factors, initial encounter; Y93.89 Activity, other specified; Y92.89 Other specified places as the place of occurrence of the external cause; Y99.8 Other external cause status

== ENCOUNTER 2024-06-06 12:54 | Emergency (ER) | payer OTHER ==
[~2024-06-06] VITALS: Ht 165.1 cm; Wt 86.0 kg
[~2024-06-06 12:54] MED LIST changes: -ISMO20 PO; +ISOS-51 PO
[2024-06-06 12:57] VITALS: O2SAT 99
[2024-06-06 13:20] VITALS: TEMP 36.6
[2024-06-06 13:35] LABS: TROPONIN I HIGH SENSITIVITY 15 ng/L (3.0-53)
[2024-06-06 13:39] LABS: BASOPHILS % 1.4 % (0.0-2.0); EOSINOPHILS % 4.2 % (0.0-5.0); HEMATOCRIT. 55.2 % (42.0-52.0); LYMPHOCYTES % 23.4 % (20.0-50.0); MEAN CORPUSCULAR HEMOGLOBIN 26.1 pg (28.0-32.0); MEAN CORPUSCULAR HGB CONC 32.7 g/dL (31.0-37.0); MEAN PLATELET VOLUME 8.3 fl (7.4-10.4); MONOCYTES % 7.3 % (2.0-8.0); NEUTROPHILS % 63.7 % (40.0-76.0); PLATELET 336 x1000/uL (130-400); RED CELL DISTRIBUTION WIDTH 20.9 % (11.6-14.6); WHITE BLOOD COUNT 10.9 x1000/uL (4.5-11.0)
[2024-06-06 14:04] LABS: CHLORIDE 101 mEq/L (98-107); POTASSIUM 4.2 mEq/L (3.5-5.1); SODIUM 139 mEq/L (136-145)
[2024-06-06 14:05] LABS: CALCIUM 10.7 mg/dL (8.7-10.4); CARBON DIOXIDE 27 mEq/L (21-32)
[2024-06-06 14:10] LABS: GLUCOSE 159 mg/dL (70-105); UREA NITROGEN BLOOD 16 mg/dL (9-23)
[2024-06-06] MEDS: MORPHINE SULFATE 2 MG/ML INJ (NOT FOR IM USE) IV ONE ×2 (15:00→15:01)
[2024-06-06 16:35] VITALS: BP 168/92; PULSE 66; RESP 18; O2SAT 99
[2024-06-06] MEDS ORDERED: ZOLPIDEM TARTRATE 5MG TABLET PO PRN (16:45)
[2024-06-06] MEDS ORDERED: CLONIDINE 0.1MG TABLET PO PRN (16:45)
[2024-06-06] MEDS ORDERED: HYDROCODONE/ACETAMINOPHEN 5/325MG TABLET PO PRN (16:45)
[2024-06-06] MEDS ORDERED: ONDANSETRON HCL 4MG/2ML INJ IV PRN (16:45)
[2024-06-06] MEDS ORDERED: ACETAMINOPHEN 325MG TABLET PO PRN (16:45)
[2024-06-06] MEDS ORDERED: DEXTROSE 50% WATER 50ML SYRINGE IV PRN (16:45)
[2024-06-06] MEDS ORDERED: BLOOD SUGAR DIAGNOSTIC STRIP TEST SCH (17:00)
[2024-06-06] MEDS ORDERED: NALOXONE HCL 0.4MG/ML VIAL IV PRN (17:00)
[2024-06-06] MEDS ORDERED: ENOXAPARIN 40MG/0.4ML SYR SUBCUT SCH (18:00)
[2024-06-06] MEDS ORDERED: INSULIN LISPRO 100 UNITS/ML SUBCUT SCH (18:20)
[2024-06-06] MEDS ORDERED: ATORVASTATIN CALCIUM 40MG TABLET PO SCH (21:00)
[2024-06-06] MEDS ORDERED: CARVEDILOL 3.125 MG TABLET PO SCH (21:00)
[2024-06-07] MEDS ORDERED: ISOSORBIDE MONONITRATE 20MG TABLET PO SCH (09:00)
[2024-06-07] MEDS ORDERED: CLOPIDOGREL 75MG TABLET PO SCH (09:00)
[2024-06-07] MEDS ORDERED: PANTOPRAZOLE SODIUM 40 MG/VIAL IV SCH (09:00)
[2024-06-07] MEDS ORDERED: ASPIRIN 81MG EC TABLET PO SCH (09:00)
[2024-06-07] MEDS ORDERED: LOSARTAN 50 MG TABLET PO SCH (09:00)
[2024-06-07] MEDS ORDERED: AMLODIPINE 10MG TABLET PO SCH (09:00)
== END 2024-06-06 16:37 | disposition home or self-care (01) ==
LOC: ER 12:54 → EDBEDREQ 15:28 → ER 16:37
DX: R07.89 Other chest pain (principal); E78.00 Pure hypercholesterolemia, unspecified; I10 Essential (primary) hypertension; I25.10 Atherosclerotic heart disease of native coronary artery without angina pectoris; Z79.02 Long term (current) use of antithrombotics/antiplatelets; Z79.82 Long term (current) use of aspirin; Z79.84 Long term (current) use of oral hypoglycemic drugs; Z79.899 Other long term (current) drug therapy; Z95.1 Presence of aortocoronary bypass graft; Z95.810 Presence of automatic (implantable) cardiac defibrillator
CPT/HCPCS: 80048; 83880; 85025; 84484; 36415; 71045; 93005; 96374; 99285; J2270; Z7610 ×2; A4606

== ENCOUNTER 2024-11-20 17:58 | Emergency (ER) | payer OTHER ==
[~2024-11-20] VITALS: Ht 167.6 cm; Wt 91.0 kg
[2024-11-20 18:00] VITALS: O2SAT 96
[2024-11-20] MEDS: ASPIRIN 81MG TABLET PO ONE (18:25)
[2024-11-20] MEDS: NITROGLYCERIN 0.4MG TABLET SL SL ONE (18:34)
[2024-11-20 19:09] LABS: BASOPHILS % 0.7 % (0.0-2.0); EOSINOPHILS % 5.6 % (0.0-5.0); HEMATOCRIT. 49.8 % (42.0-52.0); HEMOGLOBIN. 16.9 g/dL (14.0-18.0); LYMPHOCYTES % 20.2 % (20.0-50.0); MEAN PLATELET VOLUME 9.0 fl (7.4-10.4); MONOCYTES % 7.5 % (2.0-8.0); NEUTROPHILS % 66.0 % (40.0-76.0); PLATELET 213 x1000/uL (130-400); RED BLOOD CELL COUNT 5.61 mill/uL (4.7-6.1); RED CELL DISTRIBUTION WIDTH 15.1 % (11.6-14.6)
[2024-11-20 19:28] LABS: CREATININE 0.9 mg/dL (0.6-1.3); INR 1.0
[2024-11-20 19:29] LABS: TROPONIN I HIGH SENSITIVITY 17 ng/L (3.0-53); UREA NITROGEN BLOOD 9 mg/dL (9-23)
[2024-11-20 19:30] LABS: ASPARTATE AMINOTRANSFERASE 34 IU/L (<34)
[2024-11-20 19:31] LABS: BILIRUBIN DIRECT < 0.1 mg/dL (<=3.0); BILIRUBIN TOTAL 0.3 mg/dL (0.1-1.0); PROTEIN TOTAL 6.6 g/dL (6.0-8.3)
[2024-11-20 19:45] VITALS: BP 158/89; PULSE 63; RESP 17; TEMP 36.7; O2SAT 98
== END 2024-11-20 19:55 | disposition home or self-care (01) ==
LOC: ER 17:58 → EDBEDREQTM 18:08 → EDBEDREQ 18:08 → EDBEDREQTM 19:47 → ER 19:55 → CMPBEDREQ 11-21 07:53
DX: R07.89 Other chest pain (principal); I11.0 Hypertensive heart disease with heart failure; E78.00 Pure hypercholesterolemia, unspecified; I50.9 Heart failure, unspecified; I25.2 Old myocardial infarction; F17.200 Nicotine dependence, unspecified, uncomplicated; Z79.82 Long term (current) use of aspirin; Z79.84 Long term (current) use of oral hypoglycemic drugs; Z79.899 Other long term (current) drug therapy; Z83.3 Family history of diabetes mellitus; Z95.1 Presence of aortocoronary bypass graft; Z95.5 Presence of coronary angioplasty implant and graft; Z95.810 Presence of automatic (implantable) cardiac defibrillator
CPT/HCPCS: 80076; 80048; 83880; 83690; 83735; 85025; 85610; 85730; 84484; 36415; 71045; 93005; 99285; Z7610

== ENCOUNTER 2024-11-26 22:08 | Emergency (ER) | payer OTHER ==
[~2024-11-26] VITALS: Ht 165.1 cm; Wt 89.0 kg
[2024-11-26 22:57] VITALS: O2SAT 96
[2024-11-26 23:21] LABS: BASOPHILS % 1.1 % (0.0-2.0); EOSINOPHILS % 5.7 % (0.0-5.0); HEMATOCRIT. 51.4 % (42.0-52.0); HEMOGLOBIN. 17.5 g/dL (14.0-18.0); LYMPHOCYTES % 22.9 % (20.0-50.0); MEAN PLATELET VOLUME 8.8 fl (7.4-10.4); MONOCYTES % 7.7 % (2.0-8.0); NEUTROPHILS % 62.6 % (40.0-76.0); PLATELET 211 x1000/uL (130-400); RED BLOOD CELL COUNT 5.83 mill/uL (4.7-6.1); RED CELL DISTRIBUTION WIDTH 15.3 % (11.6-14.6)
[2024-11-26 23:30] LABS: CLARITY URINE CLEAR (CLEAR); COLOR URINE YELLOW (YELLOW); GLUCOSE URINE 3+ (NEGATIVE); KETONES URINE TRACE (NEGATIVE); LEUKOCYTE ESTERASE URINE NEGATIVE (NEGATIVE); NITRITE URINE NEGATIVE (NEGATIVE); OCCULT BLOOD URINE NEGATIVE (NEGATIVE); PH URINE 5.5 (4.5-8.0); PROTEIN URINE 1+ (NEGATIVE); SPECIFIC GRAVITY URINE 1.033 (1.005-1.030); UROBILINOGEN URINE 0.2 E.U./dL (0.2-1.0)
[2024-11-26 23:35] LABS: CREATININE 1.0 mg/dL (0.6-1.3); UREA NITROGEN BLOOD 11 mg/dL (9-23)
[2024-11-26 23:36] LABS: TROPONIN I HIGH SENSITIVITY 18 ng/L (3.0-53)
[2024-11-27 00:12] LABS: ASPARTATE AMINOTRANSFERASE 21 IU/L (<34); BILIRUBIN DIRECT < 0.1 mg/dL (<=3.0); BILIRUBIN TOTAL 0.3 mg/dL (0.1-1.0); PROTEIN TOTAL 6.9 g/dL (6.0-8.3)
[2024-11-27] MEDS: ASPIRIN 325MG TABLET PO ONE (00:12)
[2024-11-27] MEDS: NITROGLYCERIN 0.4MG TABLET SL SL ONE (00:42)
[2024-11-27] MEDS: ONDANSETRON HCL 4MG/2ML INJ IV ONE (00:43)
[2024-11-27] MEDS: MORPHINE SULFATE 4 MG/ML INJ (FOR IV/IM USE) IV ONE (00:43)
[2024-11-27 03:05] LABS: BACTERIA URINE NONE SEEN; RBC URINE 0-2 /hpf (0-2); SQUAMOUS EPITHELIAL CELL URINE NONE SEEN /lpf (RARE/1+); WBC URINE 0-2 /hpf (0-2)
[2024-11-27 03:30] VITALS: BP 159/100; PULSE 68; RESP 12; TEMP 36.7; O2SAT 98
== END 2024-11-27 03:40 | disposition short-term general hospital (02) ==
LOC: ER 22:08 → EDBEDREQ 11-27 02:35 → EDBEDREQDT 11-27 02:35 → EDBEDREQTM 11-27 02:35 → ER 11-27 03:40 → CMPBEDREQ 11-27 09:56
DX: R07.2 Precordial pain (principal); E78.00 Pure hypercholesterolemia, unspecified; I10 Essential (primary) hypertension; I25.10 Atherosclerotic heart disease of native coronary artery without angina pectoris; I25.2 Old myocardial infarction; Z95.1 Presence of aortocoronary bypass graft; Z95.810 Presence of automatic (implantable) cardiac defibrillator; Z95.5 Presence of coronary angioplasty implant and graft; Z79.899 Other long term (current) drug therapy; Z79.84 Long term (current) use of oral hypoglycemic drugs; Z79.82 Long term (current) use of aspirin
CPT/HCPCS: 80076; 80048; 81003; 83880; 83690; 85025; 84484; 36415; 71045; 93005; 99285; 96374; 96375; J2405; J2270; Z7610 ×2; A4606